=== PATIENT | female | born 1940 | race Caucasian/White ===

== ENCOUNTER → 2017-04-13 | Outpatient (CLI) | payer MEDICARE ==
--- NOTE | 2017-04-14 11:20 | MM ---
Reason for exam: screening (asymptomatic). Last mammogram was performed 1 year ago. History: Patient is postmenopausal, has history of other cancer at age 55, and is nulliparous. Physical Findings: A clinical breast exam by your physician is recommended on an annual basis and results should be correlated with mammographic findings. MG 3D Screening Mammo W/Cad Bilateral CC and MLO view(s) were taken. Prior study comparison: April 11, 2016, bilateral MG 3d screening mammo w/cad. April 10, 2015, left breast MG work up mamm w CAD LT. April 04, 2015, bilateral MG screening mammo w CAD. There are scattered fibroglandular densities. No significant changes when compared with prior studies. ASSESSMENT: Benign, BI-RAD 2 RECOMMENDATION: Routine screening mammogram of both breasts in 1 year.
== END | disposition home or self-care (01) ==
LOC: RADMAMWWP 13:31
PROVIDERS: ATTEND Internal Medicine Hematology & Oncology
DX: Z12.31 Encounter for screening mammogram for malignant neoplasm of breast (principal)
CPT/HCPCS: 77063; G0202

== ENCOUNTER → 2018-06-01 | Outpatient (CLI) | payer MEDICARE ==
--- NOTE | 2018-06-02 14:37 | MM ---
Reason for exam: screening (asymptomatic). Last mammogram was performed 1 year and 2 months ago. History: Patient is postmenopausal, has history of other cancer at age 55, and is nulliparous. Physical Findings: A clinical breast exam by your physician is recommended on an annual basis and results should be correlated with mammographic findings. MG 3D Screening Mammo W/Cad Bilateral CC and MLO view(s) were taken. Prior study comparison: April 13, 2017, bilateral MG 3d screening mammo w/cad. April 11, 2016, bilateral MG 3d screening mammo w/cad. The breast tissue is heterogeneously dense. This may lower the sensitivity of mammography. Finding: There are typically benign vascular, dystrophic, round calcifications in both breasts. There is no discrete abnormality. ASSESSMENT: Benign, BI-RAD 2 RECOMMENDATION: Routine screening mammogram of both breasts in 1 year.
== END ==
LOC: RADMAMWWP 13:17
PROVIDERS: ATTEND Internal Medicine Hematology & Oncology
DX: Z12.31 Encounter for screening mammogram for malignant neoplasm of breast (principal)
CPT/HCPCS: 77063; 77067

== ENCOUNTER → 2018-06-01 | Outpatient (CLI) | payer MEDICARE ==
--- NOTE | 2018-06-01 23:18 | BD ---
EXAMINATION TYPE: Axial Bone Density DATE OF EXAM: 06/01/2018 COMPARISON: NONE CLINICAL HISTORY: 77-year-old female screening for osteoporosis Height: 5 FT 3 IN Weight: 156 FRAX RISK QUESTIONS: Secondary Osteoporosis: 3. Menopause before 45: YES RISK FACTORS HISTORY OF: Active: MODERATELY Postmenopausal woman: TOTAL HYST AGE 44 Lost more than 2 inches in height since high school: YES MEDICATIONS: Thyroid Medications: YES Which medication: SYNTHROID How Lon-20 YEARS Additional Medications: SYNTHROID, SIMVASTATIN, GLAUCOMA EYE DROPS, LISINOPRIL, Additional History: CHRONIC LYMPHOMA EXAM MEASUREMENTS: Bone mineral densitometry was performed using the [employer] System. Bone mineral density as measured about the Lumbar spine is: ----- L1-L4(G/cm2): 0.937 T Score Values are as follows: ----- L2: -2.7 ----- L3: -2.4 ----- L4: -1.5 ----- L1-L4: -2.0 Bone mineral density has: DECREASED -0.7 % since study of: 2014 Bone mineral density about the R hip (g/cm2): 0.750 Bone mineral density about the L hip (g/cm2): 0.728 T Score values are as follows: -----R Neck: -2.1 -----L Neck: -2.2 -----R Total: -1.6 -----L Total: -1.9 Bone mineral density has: DECREASED -1.8 % since study of: 2014 IMPRESSION: Osteopenia (T Score between -2.5 and -1). There is slightly increased risk of fracture and the patient may be considered for treatment. Re-Screen 2-5 years. NOTE: T-SCORE=SD OF THE YOUNG ADULT MEAN.
== END | disposition home or self-care (01) ==
LOC: RADBDWWP 13:19
PROVIDERS: ATTEND Internal Medicine
DX: Z13.820 Encounter for screening for osteoporosis (principal); M85.80 Other specified disorders of bone density and structure, unspecified site
CPT/HCPCS: 77080

== ENCOUNTER 2018-10-12 10:49 | Day surgery (SDC) | payer MEDICARE ==
[~2018-10-12 10:49] MED LIST: LACTATED RINGERS 1,000 ML IV SCH; LIDOCAINE 1% 20 ML VIAL (10MG/ML) FOR IV START INTRADERMA PRN
[2018-10-12 11:16] VITALS: TEMP 97.8
[2018-10-12] MEDS ORDERED: LACTATED RINGERS 1,000 ML IV ONE (11:16)
[2018-10-12] MEDS ORDERED: PROPOFOL 10 MG/ML 20 ML VIAL IV ONE (12:16)
[2018-10-12 12:54] VITALS: RESP 16
--- NOTE | 2018-10-12 12:59 | P.PCN ---
Date of Procedure: 10/12/18 Procedure(s) Performed: Procedure: Total colonoscopy. Preoperative diagnosis: Constipation and left lower quadrant pain. Postoperative diagnosis: Exam within normal limits. Preparation: HalfLytely prep. Sedation: Was provided by anesthesia. Brief clinical history: The patient is a 78-year-old female who is scheduled for this evaluation because of left lower quadrant pain and issues with constipation. The patient has not had a colonoscopy in many years. There is no bleeding or other alarm symptoms. CT of the abdomen is not revealing. Procedure: With the patient on her left lateral decubitus position and after informed consent and adequate sedation, the perianal area was inspected and it did not show any fissures or fistulas. There were no masses felt on digital rectal examination. The Olympus CFH 190L video colonoscope was then inserted in the rectum in the usual fashion and advanced to the cecum. The mucosa appeared healthy. No polyps or tumors were seen or any obvious diverticular disease or other pathology. The patient tolerated the procedure well. Plan: The patient was reassured. Discussed dietary measures. She will follow- up with you as planned and I will be happy to see in the future if her symptoms persist.
[2018-10-12 13:18] VITALS: BP 142/66; PULSE 64
== END 2018-10-12 13:41 | disposition home or self-care (01) ==
LOC: ORWHC2ENDO 10:49
DX: K59.00 Constipation, unspecified (principal); R10.32 Left lower quadrant pain; I10 Essential (primary) hypertension; M19.90 Unspecified osteoarthritis, unspecified site; E78.5 Hyperlipidemia, unspecified; E07.9 Disorder of thyroid, unspecified; H40.9 Unspecified glaucoma; F39 Unspecified mood [affective] disorder; Z79.890 Hormone replacement therapy; Z79.899 Other long term (current) drug therapy; Z88.0 Allergy status to penicillin; Z88.2 Allergy status to sulfonamides; Z91.041 Radiographic dye allergy status; Z88.1 Allergy status to other antibiotic agents; Z87.891 Personal history of nicotine dependence
CPT/HCPCS: 45378; J2704

== ENCOUNTER → 2019-06-23 | Outpatient (CLI) | payer MEDICARE ==
--- NOTE | 2019-06-28 09:21 | MM ---
Reason for exam: screening (asymptomatic). Last mammogram was performed 1 year and 1 month ago. History: Patient is postmenopausal, has history of other cancer at age 55, and is nulliparous. Physical Findings: A clinical breast exam by your physician is recommended on an annual basis and results should be correlated with mammographic findings. MG 3D Screening Mammo W/Cad Bilateral CC and MLO view(s) were taken. Prior study comparison: June 01, 2018, bilateral MG 3d screening mammo w/cad. April 13, 2017, bilateral MG 3d screening mammo w/cad. The breast tissue is heterogeneously dense. This may lower the sensitivity of mammography. Focal asymmetry left anterior medial upper quadrant. This finding is changed when compared with previous exams. ASSESSMENT: Incomplete: need additional imaging evaluation, BI-RAD 0 RECOMMENDATION: Special view mammogram of the left breast. If lesion persists on supplemental views, image directed ultrasound is recommended. [facility] will attempt to contact patient to return for supplemental views and ultrasound if indicated.
== END | disposition home or self-care (01) ==
LOC: RADMAMWWP 10:51
PROVIDERS: ATTEND Internal Medicine
DX: Z12.31 Encounter for screening mammogram for malignant neoplasm of breast (principal)
CPT/HCPCS: 77063; 77067

== ENCOUNTER → 2019-07-06 | Outpatient (CLI) | payer MEDICARE ==
--- NOTE | 2019-07-07 09:04 | MM ---
Reason for exam: additional evaluation requested from abnormal screening. Last mammogram was performed less than 1 month ago. History: Patient is postmenopausal, has history of other cancer at age 55, and is nulliparous. Physical Findings: Nurse did not find any significant physical abnormalities on exam. MG 3D Work Up W/Cad LT Spot compression CC, spot compression MLO, and LM view(s) were taken of the left breast. Prior study comparison: June 23, 2019, bilateral MG 3d screening mammo w/cad. June 01, 2018, bilateral MG 3d screening mammo w/cad. The breast tissue is heterogeneously dense. This may lower the sensitivity of mammography. Benign appearing calcifications in the left breast. No suspicious abnormality. Medial asymmetry appears as fibroglandular tissue and stable back to 2016. These results were verbally communicated with the patient and result sheet given to the patient on 07/06/19. ASSESSMENT: Benign, BI-RAD 2 RECOMMENDATION: Return to routine screening mammogram schedule for both breasts.
== END | disposition home or self-care (01) ==
LOC: RADMAMWWP 14:00
PROVIDERS: ATTEND Internal Medicine
DX: R92.8 Other abnormal and inconclusive findings on diagnostic imaging of breast (principal)
CPT/HCPCS: 77065; G0279; 77061

== ENCOUNTER → 2020-07-24 | Outpatient (CLI) | payer MEDICARE ==
--- NOTE | 2020-07-24 14:20 | MM ---
Reason for exam: additional evaluation requested from prior study. Last mammogram was performed 1 year and 1 month ago. History: Patient is postmenopausal, has history of other cancer at age 55, and is nulliparous. Physical Findings: Nurse did not find any significant physical abnormalities on exam. MG 3D Diag Mammo W/Cad ARJUN Bilateral CC and MLO view(s) were taken. Prior study comparison: July 06, 2019, left breast MG 3d work up w/cad LT. June 23, 2019, bilateral MG 3d screening mammo w/cad. Benign appearing bilateral calcifications. No significant new findings when compared with previous films. These results were verbally communicated with the patient and result sheet given to the patient on 07/24/20. ASSESSMENT: Benign, BI-RAD 2 RECOMMENDATION: Routine screening mammogram of both breasts in 1 year.
--- NOTE | 2020-07-25 16:21 | BD ---
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 Bone mineral density as measured about the Lumbar spine is: ----- L1-L4(G/cm2): 0.960 T Score Values are as follows: ----- L2: -2.6 ----- L3: -1.7 ----- L4: -1.0 ----- L1-L4: -1.8 Bone mineral density has: Increased 5.2% since study of: 06/01/2018 Bone mineral density about the R hip (g/cm2): 0.736 Bone mineral density about the L hip (g/cm2): 0.715 T Score values are as follows: -----R Neck: -2.2 -----L Neck: -2.3 -----R Total: -1.8 -----L Total: -2.1 Bone mineral density has: Decreased -2.8% since study of: 06/01/2018 IMPRESSION: Osteopenia (T Score between -2.5 and -1) remains present. There remains slightly increased risk of fracture and the patient may be considered for treatment. Re-Screen 2-5 years. NOTE: T-SCORE=SD OF THE YOUNG ADULT MEAN.
== END | disposition home or self-care (01) ==
LOC: RADMAMWWP 13:13
PROVIDERS: ATTEND Family Medicine
DX: R92.8 Other abnormal and inconclusive findings on diagnostic imaging of breast (principal); M85.80 Other specified disorders of bone density and structure, unspecified site
CPT/HCPCS: 77080; 77066; G0279; 77062

== ENCOUNTER → 2021-07-25 | Outpatient (CLI) | payer MEDICARE ==
--- NOTE | 2021-07-29 10:55 | MM ---
Reason for exam: screening (asymptomatic). Last mammogram was performed 1 year ago. History: Patient is postmenopausal, has history of other cancer at age 55, and is nulliparous. Physical Findings: A clinical breast exam by your physician is recommended on an annual basis and results should be correlated with mammographic findings. MG 3D Screening Mammo W/Cad Bilateral CC and MLO view(s) were taken. Prior study comparison: July 24, 2020, bilateral MG 3d diag mammo w/cad ARJUN. June 23, 2019, bilateral MG 3d screening mammo w/cad. June 01, 2018, bilateral MG 3d screening mammo w/cad. The breast tissue is heterogeneously dense. This may lower the sensitivity of mammography. No significant changes when compared with prior studies. ASSESSMENT: Benign, BI-RAD 2 RECOMMENDATION: Routine screening mammogram of both breasts in 1 year.
== END | disposition home or self-care (01) ==
LOC: RADMAMWWP 14:40
PROVIDERS: ATTEND Family Medicine
DX: Z12.31 Encounter for screening mammogram for malignant neoplasm of breast (principal); Z78.0 Asymptomatic menopausal state
CPT/HCPCS: 77063; 77067

== ENCOUNTER → 2022-07-30 | Outpatient (CLI) | payer MEDICARE ==
--- NOTE | 2022-07-30 14:51 | BD ---
EXAMINATION TYPE: Axial Bone Density DATE OF EXAM: 07/30/2022 COMPARISON: NONE CLINICAL HISTORY: 81 year old Female. ICD-10 CODE: M89.9 DISORDER OF BONE Height: 64 Weight: 154.3 FRAX RISK QUESTIONS: Alcohol (3 or more units per day): no Family History (Parent hip fracture): no Glucocorticoids (More than 3mos): no (Ex: prednisone, prednisolone, methylprednisolone, dexamethasone, and hydrocortisone). History of Fracture in Adulthood: no Secondary Osteoporosis: 1. Type 1 Diabetes: no 2. Hyperthyroidism: no 3. Menopause before 45: no 4. Malnutrition: no 5. Chronic liver disease: no Rheumatoid Arthritis: no Current Tobacco Use: no RISK FACTORS HISTORY OF: Surgery to Spine/Hip(right/left)/Wrist (right/left): no Family History of Osteoporosis: no Active: no Diet low in dairy products/other sources of calcium: yes Postmenopausal woman: yes Lost more than 2 inches in height since high school: no MEDICATIONS: Thyroid Medications: thyroid How Lon years Additional History: EXAM MEASUREMENTS: Bone mineral densitometry was performed using the [employer] System. Bone mineral density as measured about the Lumbar spine is: ----- L1-L4(G/cm2): 0.992 T Score Values are as follows: ----- L1: -2.0 ----- L2: -2.1 ----- L3: -1.2 ----- L4: -1.2 ----- L1-L4: -1.6 Bone mineral density has: increased 8.8 % since study of: 06.01.2018 Bone mineral density about the R hip (g/cm2): 0.719 Bone mineral density about the L hip (g/cm2): 0.707 T Score values are as follows: -----R Neck: -2.3 -----L Neck: -2.4 -----R Total: -1.8 -----L Total: -2.1 Bone mineral density has: decreased -2.9 % since study of: 06.01.2018 FRAX%s: The graph provided illustrates a 18.4% chance for a major osteoporotic fx and a 6.5% chance f or the hips probability for fx in 10 years time. IMPRESSION: Osteopenia (T Score between -2.5 and -1). There is slightly increased risk of fracture and the patient may be considered for treatment. Re-Screen 2-5 years. NOTE: T-SCORE=SD OF THE YOUNG ADULT MEAN.
--- NOTE | 2022-07-31 09:58 | MM ---
Reason for Exam: Screening (asymptomatic). Last mammogram was performed 1 year(s) and 1 month(s) ago. Patient History: Menarche at age 14. Patient has no children. Left ovary removed at age 41. Right ovary removed at age 41. Hysterectomy at age 41. Postmenopausal. Other cancer, age 55. Risk Values: Kiki 5 year model risk: 1.6%. NCI Lifetime model risk: 2.1%. Prior Study Comparison: 07/06/2019 Left Diagnostic Mammogram, [facility]. 07/24/2020 Bilateral Diagnostic Mammogram, [facility]. 07/25/2021 Bilateral Screening Mammogram, [facility]. Tissue Density: The breast tissue is heterogeneously dense. This may lower the sensitivity of mammography. Findings: Analyzed By CAD. There is no suspicious group of microcalcifications or new suspicious mass in either breast. Benign-appearing calcifications within both breasts. No significant change from prior exams. Overall Assessment: Benign, BI-RAD 2 Management: Screening Mammogram of both breasts in 1 year. A clinical breast exam by your physician is recommended on an annual basis and results should be correlated with mammographic findings. Electronically signed and approved by: José Miguel Cali D.O.
== END | disposition home or self-care (01) ==
LOC: RADMAMWWP 13:15
PROVIDERS: ATTEND Family Medicine
DX: Z12.31 Encounter for screening mammogram for malignant neoplasm of breast (principal); Z13.820 Encounter for screening for osteoporosis; M85.89 Other specified disorders of bone density and structure, multiple sites; Z78.0 Asymptomatic menopausal state
CPT/HCPCS: 77063; 77067; 77080

== ENCOUNTER → 2023-07-31 | Outpatient (CLI) | payer MEDICARE ==
--- NOTE | 2023-08-03 08:09 | MM ---
Reason for Exam: Screening (asymptomatic). Last screening mammogram was performed 12 month(s) ago. Patient History: Menarche at age 14. Patient has no children. Left ovary removed at age 41. Right ovary removed at age 41. Hysterectomy at age 41. Postmenopausal. Other cancer, age 55. Risk Values: Kiki 5 year model risk: 1.5%. NCI Lifetime model risk: 1.9%. Prior Study Comparison: 07/24/2020 Bilateral Diagnostic Mammogram, [facility]. 07/25/2021 Bilateral Screening Mammogram, [facility]. 07/30/2022 Bilateral MG 3D screening mammo w/cad, [facility]. Tissue Density: The breast tissue is heterogeneously dense. This may lower the sensitivity of mammography. Findings: Analyzed By CAD. There is no suspicious group of microcalcifications or new suspicious mass. Benign-appearing calcifications bilaterally. Overall Assessment: Benign, BI-RAD 2 Management: Screening Mammogram of both breasts in [address] [facility] will attempt to contact patient to return for supplemental views and ultrasound if indicated. Patient should continue monthly self-breast exams. A clinical breast exam by your physician is recommended on an annual basis. This exam should not preclude additional follow-up of suspicious palpable abnormalities. Note on Kiki scores and lifetime risk: 1. A Kiki score greater than 3% is considered moderate risk. If this is the case, consider specialist referral to assess eligibility for a risk reducing agent. 2. If overall lifetime risk for the development of breast cancer is 20% or higher, the patient may qualify for future screening with alternating mammogram and breast MRI. Electronically signed and approved by: Ramana Sky DO
== END | disposition home or self-care (01) ==
LOC: RADMAMWWP 13:03
PROVIDERS: ATTEND Family Medicine
DX: Z12.31 Encounter for screening mammogram for malignant neoplasm of breast (principal); Z78.0 Asymptomatic menopausal state
CPT/HCPCS: 77063; 77067

== ENCOUNTER → 2023-12-12 | Outpatient (CLI) | payer MEDICARE ==
--- NOTE | 2023-12-12 20:08 | MR ---
EXAMINATION TYPE: MR brain and iac wo/w con DATE OF EXAM: 12/12/2023 2:27 PM CLINICAL INDICATION:Female, 83 years old with history of R42 DIZZINESS AND GIDDINESS; PHH, Loss of ba jorge, dizziness. COMPARISON: None TECHNIQUE: Multi planar, multi sequence imaging was performed through the brain. Specialized thin s equences were obtained through the internal auditory canals. Pre-and post gadolinium sequences were obtained. MR contrast: IV Contrast: 7 cc Gadobutrol FINDINGS: Ventricular system in proportion to cerebral atrophy. Scattered high T2 signal intensity are seen wit hin the periventricular white matter. Midline structures show no abnormality. Diffusion-weighted imag ing shows no evidence of restricted diffusion. The susceptibility weighted images do not reveal any e vidence for micro-hemorrhage. The bone marrow signal is within normal limits. Paranasal sinuses and mastoid air cells: Mild scattered paranasal sinus disease. Visualized orbits: Bilaterally aphakia. After administration of gadolinium, no abnormal enhancement is seen. The internal auditory canal sequences demonstrate no significant irregularity. The 7th cranial nerve s, 8 cranial nerves, and cerebellar pontine angles appear unremarkable. After the administration sammie olinium, no abnormal enhancement is seen within the internal auditory canals. Vascular loop: None. IMPRESSION: 1. No evidence of intracranial mass nor acute/subacute CVA. 2. Moderate cerebral atrophy with proportional dilation of the ventricular system. 3. No evidence of internal auditory canal abnormality. 4. Nonspecific white matter changes, likely secondary to small vessel ischemic disease.
== END | disposition home or self-care (01) ==
LOC: RADMRIMAIN 12:55
PROVIDERS: ATTEND Otolaryngology
DX: R42 Dizziness and giddiness (principal); G31.89 Other specified degenerative diseases of nervous system
CPT/HCPCS: 70553; A9585

== ENCOUNTER → 2024-08-01 | Outpatient (CLI) | payer MEDICARE ==
--- NOTE | 2024-08-02 10:11 | BD ---
EXAMINATION TYPE: Axial Bone Density DATE OF EXAM: 08/01/2024 CLINICAL HISTORY: 83 years old Female. ICD-10 CODE: M85.89 BONE DISORDERS Height: 153lb Weight: 63in FRAX RISK QUESTIONS: Secondary Osteoporosis: RISK FACTORS HISTORY OF: MEDICATIONS: Thyroid Medications: Which medication: Levothyroxine How Long: about 20 years EXAM MEASUREMENTS: Bone mineral densitometry was performed using the [employer]. Bone mineral density as measured about the Lumbar spine is: ----- L1-L4(G/cm2): 1.013 T Score Values are as follows: ----- L1: -2.5 ----- L2: -2.1 ----- L3: -0.9 ----- L4: -0.5 ----- L1-L4: -1.4 Z Score Values are as follows: ----- L1: -0.7 ----- L2: -0.3 ----- L3: 0.9 ----- L4: 1.2 ----- L1-L4: 0.4 Bone mineral density has: Increased 2.1% since study of: 07-30-22 Bone mineral density about the R hip (g/cm2): 0.778 Bone mineral density about the L hip (g/cm2): 0.714 T Score values are as follows: -----R Neck: -2.2 -----L Neck: -2.6 -----R Total: -1.8 -----L Total: -2.3 Z Score values are as follows: -----R Neck: 0.0 -----L Neck: -0.3 -----R Total: 0.3 -----L Total: -0.2 Bone mineral density has: Decreased -2.2% since study of: 07-30-22 FRAX%s: The graph provided illustrates a 20.2% chance for a major osteoporotic fx and a 7.4% chance f or the hips probability for fx in 10 years time. IMPRESSION: Osteopenia (T Score between -2.5 and -1). There is slightly increased risk of fracture and the patient may be considered for treatment. Re-Screen 2-5 years. NOTE: T-SCORE=SD OF THE YOUNG ADULT MEAN. [facility], , 08/02/2024 10:09 AM
--- NOTE | 2024-08-03 12:24 | MM ---
Reason for Exam: Screening (asymptomatic). Last screening mammogram was performed 12 month(s) ago. Patient History: Menarche at age 14. Patient has no children. Left ovary removed at age 41. Right ovary removed at age 41. Hysterectomy at age 41. Postmenopausal. Other cancer, age 55. Risk Values: Kiki 5 year model risk: 1.4%. NCI Lifetime model risk: 1.6%. Prior Study Comparison: 07/25/2021 Bilateral Screening Mammogram, [facility]. 07/30/2022 Bilateral MG 3D screening mammo w/cad, [facility]. 07/31/2023 Bilateral MG 3D screening mammo w/cad, [facility]. Tissue Density: The breasts are heterogeneously dense, which may obscure small masses. Findings: Analyzed By CAD. There is no suspicious group of microcalcifications or new suspicious mass in either breast. Overall Assessment: Benign, BI-RAD 2 Management: Screening Mammogram of both breasts in 1 year. . Patient should continue monthly self-breast exams. A clinical breast exam by your physician is recommended on an annual basis. This exam should not preclude additional follow-up of suspicious palpable abnormalities. Note on Kiki scores and lifetime risk: 1. A Kiki score greater than 3% is considered moderate risk. If this is the case, consider specialist referral to assess eligibility for a risk reducing agent. 2. If overall lifetime risk for the development of breast cancer is 20% or higher, the patient may qualify for future screening with alternating mammogram and breast MRI. [facility], , 08/03/2024 12:21 PM. Electronically signed and approved by: Yury Obando M.D. Radiologis
== END | disposition home or self-care (01) ==
LOC: RADMAMWWP 13:56
PROVIDERS: ATTEND Family Medicine
DX: Z12.31 Encounter for screening mammogram for malignant neoplasm of breast (principal); M85.89 Other specified disorders of bone density and structure, multiple sites; Z78.0 Asymptomatic menopausal state; R92.333 Mammographic heterogeneous density, bilateral breasts
CPT/HCPCS: 77063; 77067; 77080